=== PATIENT | male | born 1940 | race American Indian/Alaskan Native ===

== ENCOUNTER 2017-08-23 11:18 | Day surgery (SDC) | payer MEDICARE ==
[2017-08-18 08:09] VITALS: BMI 22.8
[2017-08-23 12:49] LABS: BLOOD UREA NITROGEN 25 mg/dL (9-20); CALCIUM 8.6 mg/dl (8.6-10.4); GFR AFRICAN-AMERICAN > 60; GFR NON-AFRICAN AMERICAN 59
[2017-08-23] MEDS ORDERED: Lactated Ringer's 1,000 ML IV ONE (14:30)
[2017-08-23] MEDS: Gentamicin 160 MG in Sodium Chloride 0.9% 100 ML IVPB ONE ×2 (14:35→14:40)
[2017-08-23] MEDS ORDERED: Midazolam 2 MG/2 ML VIAL ONE (14:36)
[2017-08-23] MEDS ORDERED: Propofol 10 mg/ml Inj (20 ML) ONE (14:37)
[2017-08-23] MEDS: Ciprofloxacin 400mg/200ml D5W 400 MG/200 ML BAG IVPB ONE ×2 (14:50→15:05)
[2017-08-23] MEDS ORDERED: ePHEDrine 50 mg/ml Inj ONE (14:52)
--- NOTE | 2017-08-23 15:02 | PCM.SURG1 ---
Surgeon's Initial Post Op Note - Surgeon's Notes Surgeon: Shaka Criminal Intelligence Analyst: GUSTABO Type of Anesthesia: General LMA Anesthesia Administered By: STAFF Pre-Operative Diagnosis: HEMATURIA HX BT Operative Findings: BT Post-Operative Diagnosis: bLADDER TUMOR MEDIUM Operation Performed: TURBT Specimen/Specimens Removed: BT Estimated Blood Loss: EBL {In ML}: 0 Blood Products Given: N/A Drains Used: No Drains Post-Op Condition: Good Date of Surgery/Procedure: 08/23/17 Time of Surgery/Procedure: 15:02
[2017-08-23] MEDS ORDERED: HYDROmorphone 0.5 mg/0.5 ml ISec IVP PRN (15:17)
[2017-08-23] MEDS ORDERED: Lactated Ringer's 1,000 ML IV SCH (15:30)
[2017-08-23 16:30] VITALS: RESP 16; O2SAT 100
[2017-08-23 17:06] VITALS: BP 113/66; PULSE 79; TEMP 97.6
--- NOTE | 2017-08-24 08:05 | OP ---
PROCEDURE DATE: 08/23/2017 PREOPERATIVE DIAGNOSES: Hematuria and history of bladder tumor. POSTOPERATIVE DIAGNOSIS: Bladder tumor. PROCEDURE: TURBT medium. DESCRIPTION OF PROCEDURE: As follows; the patient signed the detailed informed consent after full explanation of the risks and complications of this procedure and alternative methods of managing hematuria and possible bladder tumor. He was brought into the room and draped and prepped in the usual manner. After receiving prophylactic antibiotics, timeout was taken according to the rules and regulations of [facility]. The patient was cystoscoped with a #21 Storz panendoscope. The pendulous and membranous urethra was normal. The prostate showed trilobar hypertrophy with moderate outlet obstruction. The bladder was entered atraumatically. There was several smaller tumors, which were simply fulgurated, and there was a medium tumor, which was resected. A commercial sales representative sample was evacuated and sent for pathological analysis. The base was fulgurated extensively. The tumor did not appear invasive. The patient tolerated this well. The tumor was well away from both ureteral orifices. No injury occurred. Based on the depth of tumor, it was not felt a Callaway catheter was needed, and the patient's bladder was drained, and he was sent to the recovery room in good condition. Westley Matt MD
== END 2017-08-23 17:20 | disposition home or self-care (01) ==
LOC: C.SDS 11:18
PROVIDERS: ATTEND Urology
DX: D49.4 Neoplasm of unspecified behavior of bladder (principal); R31.9 Hematuria, unspecified
CPT/HCPCS: 36415; 52235; 80048; 88305; J0744; J1580; J7120

== ENCOUNTER 2017-12-20 10:14 | Day surgery (SDC) | payer MEDICARE ==
[2017-08-18 08:09] VITALS: BMI 22.8
[2017-12-20] MEDS ORDERED: Ciprofloxacin 400mg/200ml D5W 400 MG/200 ML BAG IVPB ONE (12:23)
[2017-12-20] MEDS ORDERED: Propofol 10 mg/ml Inj (20 ML) ONE (12:29)
[2017-12-20] MEDS: Gentamicin 160 MG in Sodium Chloride 0.9% 100 ML IVPB ONE ×2 (13:33→13:45)
--- NOTE | 2017-12-20 13:50 | PCM.SURG1 ---
Surgeon's Initial Post Op Note - Surgeon's Notes Surgeon: Shaka Manager Of Application Development: na Type of Anesthesia: General Endo Anesthesia Administered By: staff Pre-Operative Diagnosis: Hx BT Operative Findings: Bladder tumors Post-Operative Diagnosis: BBladder tumors Operation Performed: TURBT Specimen/Specimens Removed: BT Estimated Blood Loss: EBL {In ML}: 0 Blood Products Given: N/A Drains Used: No Drains Post-Op Condition: Good Date of Surgery/Procedure: 12/20/17 Time of Surgery/Procedure: 13:50
[2017-12-20] MEDS ORDERED: Lidocaine 2% Jelly (Uro-Jet) ONE (14:10)
[2017-12-20] MEDS ORDERED: HYDROmorphone 0.5 mg/0.5 ml ISec IVP PRN (14:11)
[2017-12-20] MEDS ORDERED: Lactated Ringer's 1,000 ML IV SCH (14:15)
[2017-12-20 15:14] VITALS: BP 157/74; PULSE 70; RESP 18; TEMP 98; O2SAT 100
--- NOTE | 2017-12-21 01:35 | OP ---
PROCEDURE DATE: 12/20/2017 PREOPERATIVE DIAGNOSIS: Personal history of bladder tumor. POSTOPERATIVE DIAGNOSIS: Medium-sized bladder tumor. PROCEDURE: Transurethral resection of bladder tumor. DESCRIPTION OF PROCEDURE: The patient was apprised the risk and complications of this procedure and the altered methods of managing bladder cancer history. He consented to the procedure and was willing to accept the risk. He was brought into the OR and a timeout was taken according to the rules and regulations of [facility], and the patient was draped and prepped in the usual manner. After receiving the prophylactic antibiotics, he was cystoscoped with a #21 Storz panendoscope. The pendulous and membranous urethra are normal. The prostatic urethra showed some prostatic encroachment, but only moderate. The bladder was entered atraumatically. There were 2 bladder tumors on the right lateral wall of the bladder and the dome of the bladder. A cold-cut biopsy was taken and then the tumors were resected down to the base, which fulgurated extensively. Both tumors were resected in similar fashion. No significant bleeding occurred. It was elected to leave a Callaway catheter, so the bladder was left full and a #18 Callaway catheter was inserted. Specimens were sent together for pathological analysis. The patient tolerated this procedure well and sent to the recovery room in good condition. Westley Matt MD
== END 2017-12-20 15:16 | disposition home or self-care (01) ==
LOC: C.SDS 10:14
PROVIDERS: ATTEND Urology
DX: C67.1 Malignant neoplasm of dome of bladder (principal)
CPT/HCPCS: 52235; 88305; J0744; J1580

== ENCOUNTER 2018-05-09 11:15 | Day surgery (SDC) | payer MEDICARE ==
[2017-08-18 08:09] VITALS: BMI 22.8
[2018-05-09 12:15] VITALS: O2SAT 100
[2018-05-09] MEDS ORDERED: Gentamicin 160 MG in Sodium Chloride 0.9% 100 ML IVPB ONE (12:38)
[2018-05-09] MEDS ORDERED: Ciprofloxacin 400mg/200ml D5W 400 MG/200 ML BAG IVPB ONE (16:47)
[2018-05-09] MEDS ORDERED: Propofol 10 mg/ml Inj (20 ML) ONE (16:50)
--- NOTE | 2018-05-09 17:21 | PCM.SURG1 ---
Surgeon's Initial Post Op Note - Surgeon's Notes Surgeon: Shaka Road Machinery Inspector: GUSTABO Type of Anesthesia: General LMA Anesthesia Administered By: Staff Pre-Operative Diagnosis: Hx Bladder tumor Operative Findings: Bladder tumor right wall Post-Operative Diagnosis: Bladder tumor Operation Performed: CYSTO BIOPSY AND FULGURATION Specimen/Specimens Removed: tUMOR bx Estimated Blood Loss: EBL {In ML}: 0 Blood Products Given: N/A Drains Used: No Drains Post-Op Condition: Good Date of Surgery/Procedure: 05/09/18 Time of Surgery/Procedure: 17:21
[2018-05-09] MEDS ORDERED: HYDROmorphone 0.5 mg/0.5 ml ISec IVP PRN (17:27)
[2018-05-09 18:41] VITALS: RESP 16
[2018-05-09 18:44] VITALS: BP 169/67; PULSE 60; TEMP 97.6
--- NOTE | 2018-05-10 05:24 | OP ---
PROCEDURE DATE: 05/09/2018 PREOPERATIVE DIAGNOSIS: History of bladder tumor. POSTOPERATIVE DIAGNOSIS: Recurrent bladder tumor. PROCEDURES: Cystoscopy, biopsy, and fulguration of bladder tumor. SURGEON: Westley Matt MD DESCRIPTION OF PROCEDURE: Procedure is as follows: Prior to the procedure, a detailed informed consent was obtained from the patient. He was explained the risks and complications of the procedure and alternative ways of managing bladder tumor history. He agreed to the cystoscopy and possible fulguration with TURP of bladder tumor, and he is aware of the alternative methods of treating. He is willing to accept the risks. He was brought into the room, and a time-out was taken according to the rules and regulations of [facility]. He received prophylactic antibiotics and was cystoscoped with a #21 Storz panendoscope. The pendulous and membranous urethra was normal. The prostatic urethra showed [id number] bladder outlet obstruction. The bladder was entered atraumatically. There was a single small bladder tumor on the right wall of the bladder above and lateral to the right ureteral orifice. This was biopsied and fulgurated with Bugbee electrode. The patient tolerated this well. His bladder was drained. He was sent to the recovery room in good condition. Westley Matt MD
== END 2018-05-09 18:48 | disposition home or self-care (01) ==
LOC: C.SDS 11:15
PROVIDERS: ATTEND Urology
DX: C67.9 Malignant neoplasm of bladder, unspecified (principal)
CPT/HCPCS: 52204; 88305; J0744; J1580

== ENCOUNTER 2018-11-16 10:02 | Outpatient (CLI) | payer MEDICARE | END 2018-11-16 10:03 | disposition home or self-care (01) | LOC: C.PAT 10:02 | DX: C67.9 Malignant neoplasm of bladder, unspecified (principal) ==

== ENCOUNTER 2018-11-28 07:25 | Day surgery (SDC) | payer MEDICARE ==
[2018-11-28] MEDS ORDERED: Propofol 10 mg/ml Inj (20 ML) ONE (11:11)
[2018-11-28] MEDS ORDERED: Ciprofloxacin 400mg/200ml D5W 400 MG/200 ML BAG IVPB ONE (11:15)
[2018-11-28] MEDS ORDERED: Gentamicin 80 mg in 0.9% NS 160 MG/200 ML BAG IVPB ONE (11:15)
[2018-11-28] MEDS ORDERED: Iohexol 240 (50 ml) ONE (11:16)
[2018-11-28] MEDS ORDERED: Lidocaine 2% Jelly (Uro-Jet) ONE (11:16)
[2018-11-28] MEDS ORDERED: Etomidate 20 mg/10ml Inj IV ONE (11:38)
--- NOTE | 2018-11-28 11:40 | PCM.SURG1 ---
Surgeon's Initial Post Op Note - Surgeon's Notes Surgeon: Hx bladder tumor Angledozer Operator: na Type of Anesthesia: General LMA Anesthesia Administered By: staff Pre-Operative Diagnosis: Hx bladder tumor Operative Findings: Bladder tumor/ureteral stent Post-Operative Diagnosis: same Operation Performed: Cystoscopy/bx Specimen/Specimens Removed: Bx Estimated Blood Loss: EBL {In ML}: 0 Blood Products Given: N/A Drains Used: No Drains Post-Op Condition: Good Date of Surgery/Procedure: 11/28/18 Time of Surgery/Procedure: 11:41
[2018-11-28] MEDS ORDERED: Lactated Ringer's 1,000 ML IV SCH (12:00)
[2018-11-28 14:05] VITALS: RESP 18; O2SAT 98
[2018-11-28 14:08] VITALS: BP 136/57; PULSE 70; TEMP 97.6
--- NOTE | 2018-11-28 15:05 | RAD ---
Date of service: 11/28/2018 PROCEDURE: Intraoperative Fluoroscopy. HISTORY: BLADDER TUMOR FINDINGS: Fluoroscopic assistance was provided. Fluoroscopy time = 3.4 sec. Radiation dose = 0.44584 mGy-cm. Please refer to the operative report from AISHA An.
== END 2018-11-28 14:12 | disposition home or self-care (01) ==
LOC: C.SDS 07:25
PROVIDERS: ATTEND Urology
DX: C67.9 Malignant neoplasm of bladder, unspecified (principal)
CPT/HCPCS: 52204; 88305; 88342; J0744; J1580

== ENCOUNTER 2018-12-15 11:20 | Outpatient (CLI) | payer MEDICARE | END 2018-12-15 11:21 | disposition home or self-care (01) | LOC: C.PAT 11:20 | DX: C67.9 Malignant neoplasm of bladder, unspecified (principal) ==

== ENCOUNTER 2018-12-19 09:45 | Day surgery (SDC) | payer MEDICARE ==
[2018-12-19 10:34] VITALS: BMI 21.0
[2018-12-19] MEDS ORDERED: Midazolam 2 MG/2 ML VIAL ONE (10:58)
[2018-12-19] MEDS ORDERED: Propofol 10 mg/ml Inj (20 ML) ONE (10:58)
[2018-12-19] MEDS ORDERED: HYDROmorphone 0.5 mg/0.5 ml ISec IVP PRN (11:16)
[2018-12-19] MEDS ORDERED: Ciprofloxacin 400mg/200ml D5W 400 MG/200 ML BAG IVPB ONE (11:21)
[2018-12-19] MEDS ORDERED: Gentamicin 80 mg in 0.9% NS 160 MG/200 ML BAG IVPB ONE (11:21)
[2018-12-19] MEDS ORDERED: Lidocaine 2% Jelly (Uro-Jet) ONE (11:22)
[2018-12-19] MEDS ORDERED: Iohexol 240 (50 ml) ONE (11:38)
--- NOTE | 2018-12-19 11:52 | PCM.SURG1 ---
Surgeon's Initial Post Op Note - Surgeon's Notes Surgeon: Shaka Sandblaster Supervisor: jack Type of Anesthesia: General LMA Anesthesia Administered By: staff Pre-Operative Diagnosis: High grade tcc bladder Operative Findings: Stent right necrotic debris @ site of previous resection. Post-Operative Diagnosis: same Operation Performed: KUB/Cysto bx prior turbt site Specimen/Specimens Removed: bx Estimated Blood Loss: EBL {In ML}: 0 Blood Products Given: N/A Drains Used: No Drains Post-Op Condition: Good Date of Surgery/Procedure: 12/19/18 Time of Surgery/Procedure: 11:53
[2018-12-19 13:29] VITALS: BP 148/74; RESP 18; TEMP 97.5; O2SAT 95
[2018-12-19 13:56] VITALS: PULSE 70
--- NOTE | 2018-12-19 15:17 | OP ---
PROCEDURE DATE: 12/19/2018 PREOPERATIVE DIAGNOSIS: High-grade bladder tumor and indwelling ureteral stent. POSTOPERATIVE DIAGNOSIS: High-grade bladder tumor and indwelling ureteral stent. PROCEDURE: Cystoscopy and biopsy of the previous transurethral resection of bladder tumor site. DESCRIPTION OF PROCEDURE: Prior to the procedure, a detailed informed consent was obtained from the patient. We asked the patient to bring the name of the doctor who placed double-J stent into our office on his next visit since he failed to bring it today. He was asked to sign a detailed informed consent. We advised the patient we would not remove the stent today since we did not know why it was placed. However, we would do a followup biopsy of the TURBT site to see if there is evidence of invasive tumor. The patient signed the consent and agreed to the risks and complications. He was brought into the room and draped and prepped in the usual manner. He received prophylactic antibiotics and was cystoscoped with #21 Storz panendoscope. The pendulous and membranous urethra was normal. The prostatic urethra showed trilobar hypertrophy with moderate outlet obstruction. The bladder was entered atraumatically. There was evidence of necrotic tissue surrounding the right ureteral orifice and immediately distal to it, presumably due to previous resections. This area was biopsied and the biopsy site was fulgurated. The patient tolerated this procedure well. In the postoperative area, he was again reminded that he must bring information regarding why and who placed the double-J stent, so that we may evaluate whether it needs to be removed. The patient agreed. Followup appointment in our office in 2 weeks has been arranged and a prescription of Cipro was given. Westley Matt MD
--- NOTE | 2018-12-19 15:23 | RAD ---
Date of service: 12/19/2018 HISTORY: BLADDER TUMOR COMPARISON: Comparison made with prior abdominal radiograph 10/12/2013. TECHNIQUE: 1 view obtained. FINDINGS: Moderate amount of stool seen throughout the large BOWEL: Moderate amount of stool seen throughout the large bowel. BONES: Normal. OTHER FINDINGS: In situ right ureteral stent. IMPRESSION: In situ right ureteral stent. Moderate amount of stool seen throughout the colon consistent with mild fecal retention/constipation
== END 2018-12-19 14:00 | disposition home or self-care (01) ==
LOC: C.SDS 09:45
PROVIDERS: ATTEND Urology
DX: C67.9 Malignant neoplasm of bladder, unspecified (principal)
CPT/HCPCS: 52235; 74018; 88305; J0744; J1580